=== PATIENT | male | born 1950 | race Caucasian/White ===

== ENCOUNTER 2016-09-04 17:25 | Emergency (ER) | payer OTHER | END 2016-09-04 18:52 | disposition home or self-care (01) | LOC: ER 17:25 | DX: S20.211S Contusion of right front wall of thorax, sequela (principal); W19.XXXS Unspecified fall, sequela; E78.00 Pure hypercholesterolemia, unspecified; I10 Essential (primary) hypertension; E11.9 Type 2 diabetes mellitus without complications; Z88.0 Allergy status to penicillin | CPT/HCPCS: 99283-25 ==